=== PATIENT | male | born 1990 | race Caucasian/White ===

== ENCOUNTER 2016-09-25 11:44 | Day surgery (SDC) | payer BC ==
--- NOTE | ~2016-09-25 | OP ---
Record Of Operation [facility] [address] [place]. [address] NAME: NONI GRECO : 88 STATUS : [facility]#: [id number] AGE: 26 ADM/REG DATE : 09/25/16 MR#: [id number] REPORT SERV DATE: 09/25/16 DICTATED BY: LEANNE KIMBALL DATE: 09/25/16 REPORT STATUS : Draft TRANSCRIBED BY: MODL DATE: 09/25/16 DATE OF PROCEDURE: 09/25/2016 PREOPERATIVE DIAGNOSIS: Left shoulder distal clavicle arthrosis, posterior labral tear. POSTOPERATIVE DIAGNOSIS: Left shoulder distal clavicle arthrosis, posterior labral tear, partial undersurface supraspinatus tear, subacromial impingement, subacromial bursitis. PROCEDURES: Left shoulder arthroscopy with posterior labral repair, articular side rotator cuff supraspinatus debridement with partial subacromial bursectomy, subacromial decompression, distal clavicle resection. SURGEON: Leanne Kimball M.D. SUPERMARKET MANAGER: Saurabh Chandra. ANESTHESIA: General anesthetic. ESTIMATED BLOOD LOSS: Less than 10 mL. FLUIDS: 700 mL crystalloid. TOURNIQUET TIME: Zero. DRAINS: None. COMPLICATIONS: None. INDICATION: A 26-year-old gentleman presented to the office with left shoulder pain refractory to conservative treatment, having failed physical therapy and activity restrictions. Plain radiographs were unremarkable except for some mild AC joint changes. MRI scan indicated AC joint changes consistent with arthrosis as well as posterior labral tear. The patient opted for operative treatment having understood the possible risks and complications discussed with him in the office. He was identified in the preop holding area. His upper extremities marked with YES. DESCRIPTION OF PROCEDURE: The patient was taken to the operative suite and placed in a supine position on the operative table. General anesthetic was successfully administered. The patient was placed in beach chair position with the left upper extremity prepped and draped to expose the arm circumferentially. A time-out was called. He was identified, correct operative extremity identified, verification of antibiotic Ancef administration. The patient then had palpation of the landmarks marked with a pen marker and a posterior incision port was marked. A spinal needle was then placed after a time-out was called into the shoulder joint infiltrated with 30 mL of saline with rapid removal. Stab incision made with an 11 scalpel blade and the arthroscopic cannula was placed with trocar. The arthroscope was then placed. An anterior portal established under needle localization again Record Of Operation [facility] [address] [facility] [place]. [address] NAME: NONI GRECO : 88 STATUS : [facility] PAT#: [id number] AGE: 26 ADM/REG DATE : 09/25/16 MR#: [id number] REPORT SERV DATE: 09/25/16 DICTATED BY: LEANNE KIMBALL DATE: 09/25/16 REPORT STATUS : Draft TRANSCRIBED BY: EMPERATRIZ DATE: 09/25/16 with 11 scalpel blade and a clear cannula was placed. The patient was noted to have intact glenohumeral joint surfaces. The anterior and superior labrum were intact. Biceps tendon was intact as well as its Egress. Supraspinatus showed some mild fraying on its undersurface. Subscapularis tendon was intact. Infraspinatus teres minor were intact. The patient then had the arthroscope switched to the anterior portal and cannula was placed posteriorly. Visualization of posterior labrum indicated crack at approximately the 3 o'clock position. This was further from the glenoid using a [place]. A 25-degree curved suture pass Arthrex was then placed and a suture pass was placed. The labral tape was then placed through this and brought back to the labrum. It was looped on itself and cinch knot and then Arthrex suture anchor PushLock was placed, securing the labrum. This was then probed and noted to be stable. The arthroscopic instrumentation then withdrawn from the shoulder joint placed in the subacromial area. Generalized bursitis was noted. This was debrided using thermal device and shaver. The subacromial distance noted to be approximately 7 mm. Cervical decompression was performed, distal clavicle was exposed, and distal clavicle resection was performed using a bur and shaver. The superior surface of the rotator cuff was noted to be intact after doing a partial bursectomy. The arthroscope was then withdrawn from the subacromial area and the three portals were closed using 3-0 Monocryl interrupted suture. Mastisol and Steri-Strips were placed. Xeroform gauze, sterile dry gauze, and then paper tape sterile dressing placed. The patient was placed in a [facility], was awakened, extubated, transferred to [facility], taken to the postanesthesia care unit in satisfactory condition having tolerated the procedure well. Sponge and needle counts were correct at the conclusion of the procedure. EC/EMPERATRIZ Leanne Kimball M.D. / [id number] CC: Priscilla Cruz M.D.
[~2016-09-25 11:44] MED LIST: ENDOCET1 TAB PO
== END 2016-09-25 20:17 | disposition home or self-care (01) ==
LOC: SDC 11:44
PROVIDERS: Orthopaedic Surgery
PROC: 0LQ24ZZ Repair Left Shoulder Tendon, Percutaneous Endoscopic Approach (ICD-10-PCS; 2016-09-25)
PROC: 0PBB4ZZ Excision of Left Clavicle, Percutaneous Endoscopic Approach (ICD-10-PCS; 2016-09-25)
PROC: 0RNK4ZZ Release Left Shoulder Joint, Percutaneous Endoscopic Approach (ICD-10-PCS; principal; 2016-09-25 13:45)
DX: M19.012 Primary osteoarthritis, left shoulder (principal); S43.402A Unspecified sprain of left shoulder joint, initial encounter; E66.9 Obesity, unspecified; G47.33 Obstructive sleep apnea (adult) (pediatric); Z88.1 Allergy status to other antibiotic agents; Z88.5 Allergy status to narcotic agent; Z79.891 Long term (current) use of opiate analgesic
CPT/HCPCS: A9270-GY; C1713; J0690; J1170; J2250; J2405; J2710; J2795; J3010